=== PATIENT | male | born 1975 | race Caucasian/White ===

== ENCOUNTER 2017-03-30 07:46 | Emergency (ER) | payer OTHER ==
[2017-03-30 09:34] LABS: APPEARANCE,URINE CLEAR; BILIRUBIN,URINE NEGATIVE (NEGATIVE); GLUCOSE, URINE NEGATIVE (NEGATIVE); KETONES,URINE NEGATIVE (NEGATIVE); LEUKOCYTE ESTERASE,URINE NEGATIVE (NEGATIVE); NITRITE,URINE NEGATIVE (NEGATIVE); PROTEIN,URINE NEGATIVE (NEGATIVE); URINE SPECIFIC GRAVITY 1.013; UROBILINOGEN,URINE NEGATIVE mg/dL (<2.0)
[2017-03-30] MEDS ORDERED: MORPHINE SULFATE 10 MG/ML INJ IV ONE (10:06)
[2017-03-30] MEDS ORDERED: ONDANSETRON HCL INJ/PF 4 MG/2 ML SDV IV ONE (10:06)
[2017-03-30] MEDS ORDERED: NORMAL SALINE 1000 ML 1,000 ML IV ONE (10:06)
[2017-03-30] MEDS ORDERED: KETOROLAC TROMETHAMINE INJ/PF 30 MG/1 ML SDV IV ONE (10:06)
--- NOTE | 2017-03-30 10:06 | ER Document Report ---
ED GI/ - General Mode of Arrival: Ambulatory Information source: Patient TRAVEL OUTSIDE OF THE [place] IN LAST 30 DAYS: No <PATRICIA RIDER - Last Filed: 03/30/17 10:35> <BHAVIN LALA - Last Filed: 03/30/17 11:58> - General Chief Complaint: Abdominal Pain Stated Complaint: VOMITING Time Seen by Provider: 03/30/17 09:56 Notes: Patient is a 41-year-old male that presents to the emergency department today with complaints of right lower quadrant abdominal pain radiating to his right flank and into his right testicle. Patient states the pain he has began suddenly this morning at 0630. Patient has a history of kidney stones but he states his symptoms today are not the exact same as his previous kidney stone but they are is similar. Patient has had associated vomiting and diaphoresis. ( PATRICIA RIDER) - Related Data Allergies/Adverse Reactions: ants Allergy (Intermediate, Uncoded 03/30/17 09:21) bees Allergy (Intermediate, Uncoded 03/30/17 09:21) Past Medical History - Social History Smoking Status: Never Smoker Chew tobacco use (# tins/day): Yes Frequency of alcohol use: Rare Drug Abuse: None Family History: Reviewed & Not Pertinent Patient has suicidal ideation: No Patient has homicidal ideation: No - Past Medical History Cardiac Medical History: Reports: Hx Hypertension Renal/ Medical History: Denies: Hx Peritoneal Dialysis - Immunizations Hx Diphtheria, Pertussis, Tetanus Vaccination: Yes <PATRICIA RIDER - Last Filed: 03/30/17 10:35> Review of Systems - Review of Systems Constitutional: See HPI, Diaphoresis EENT: No symptoms reported Cardiovascular: No symptoms reported Respiratory: No symptoms reported Gastrointestinal: See HPI, Abdominal pain - RLQ, Vomiting Genitourinary: See HPI, Flank pain Male Genitourinary: Testicular pain - right Musculoskeletal: No symptoms reported Skin: No symptoms reported Hematologic/Lymphatic: No symptoms reported Neurological/Psychological: No symptoms reported -: Yes All other systems reviewed and negative <PATRICIA RIDER - Last Filed: 03/30/17 10:35> Physical Exam <PATRICIA RIDER - Last Filed: 03/30/17 10:35> <BHAVIN LALA - Last Filed: 03/30/17 11:58> - Vital signs Vitals: Temp Pulse Resp BP Pulse Ox 98.8 F 53 L 16 188/117 H 99 03/30/17 07:54 03/30/17 07:54 03/30/17 07:54 03/30/17 07:54 03/30/17 07:54 - Notes Notes: Physical Exam: General: Alert, appears uncomfortable secondary to pain. HEENT: Normocephalic. Atraumatic. PERRL. Extraocular movements intact. Oropharynx clear. Neck: Supple. Non-tender. Respiratory: No respiratory distress. Clear and equal breath sounds bilaterally. Cardiovascular: Regular rate and rhythm. Abdominal: RLQ tenderness with palpation. No distension. Normal Bowel Sounds. Back: Right CVA tenderness to percussion. No deformity or step off. Extremities: Moves all four extremities. Upper extremities: Normal inspection. Normal ROM. Lower extremities: Normal inspection. No edema. Normal ROM. Neurological: Normal cognition. AAOx4. Normal speech. Psychological: Normal affect. Normal Mood. Skin: Warm. Diaphoresis. Normal color. (PATRICIA RIDER) Course - Laboratory Result Diagrams: 03/30/17 09:00 03/30/17 09:00 <PATRICIA RIDER - Last Filed: 03/30/17 10:35> - Laboratory Result Diagrams: 03/30/17 09:00 03/30/17 09:00 <BHAVIN LALA - Last Filed: 03/30/17 11:58> - Vital Signs Vital signs: Temp Pulse Resp BP Pulse Ox 98.8 F 53 L 16 188/117 H 99 03/30/17 07:54 03/30/17 07:54 03/30/17 07:54 03/30/17 07:54 03/30/17 07:54 - Laboratory Laboratory results interpreted by me: 03/30/17 08:57 Urine Blood MODERATE H Discharge <PATRICIA RIDER - Last Filed: 03/30/17 10:35> <BHAVIN LALA - Last Filed: 03/30/17 11:58> - Discharge Clinical Impression: Right ureteral stone, Renal colic on right side Hydronephrosis Qualifiers: Hydronephrosis type: with renal calculous obstruction Qualified Code(s): N13.2 - Hydronephrosis with renal and ureteral calculous obstruction Condition: Stable Disposition: HOME, SELF-CARE Additional Instructions: Kidney Stone: You are passing a kidney stone. These stones are usually due to increased calcium or uric acid concentrations in your urine. Stones within the kidney itself are not painful. The pain occurs as the stone leaves the kidney to pass down the long tube, called the ureter, leading to the bladder. If the stone is small, it will usually pass by itself. Most patients can pass the stone at home. You will usually receive medications for pain, nausea or vomiting, and sometimes a medication to assist in passing the kidney stone. However, if the pain is very severe or if vomiting prevents you from taking oral pain medications, you may need to return for further treatment. Drink three or four quarts of fluids per day. You will be given pain medication (if needed) and urine strainers. Strain all your urine to see if the stone passes. If your doctor has asked you to bring the stone in for analysis, return with the stone once it has passed. Return if pain or vomiting become severe, if you develop a high fever, if you are unable to pass your urine, or if other unusual symptoms occur. Drink plenty of fluids. Take pain medications as needed. Take Flomax as prescribed starting tomorrow. Strain the urine. Follow-up with a local urologist next week if not improving. RETURN TO THE EMERGENCY ROOM IF ANY NEW OR WORSENING SYMPTOMS. Prescriptions: Oxycodone HCl/Acetaminophen [Percocet 5-325 mg Tablet] 1 - 2 tab PO ASDIR PRN # 20 tablet PRN Reason: Tamsulosin HCl [Flomax 0.4 mg Cap.sr] 0.4 mg PO DAILY #7 cap.sr.24h Referrals: [facility] [Provider Group] - Follow up as needed Scribe Attestation: 03/30/17 11:39 I personally performed the services described in the documentation, reviewed and edited the documentation which was dictated to the scribe in my presence, and it accurately records my words and actions. (BHAVIN LALA) Scribe Documentation - Scribe Written by Scribe:: Kylie Samuel, 03/30/2017 1045 acting as scribe for :: Anitra <PATRICIA RIDER - Last Filed: 03/30/17 10:35>
--- NOTE | 2017-03-30 11:07 | RADIOLOGY REPORT (SQ) ---
EXAM DESCRIPTION: CT LTD RENAL STONE PROTOCOL ON COMPLETED DATE/TIME: 03/30/2017 10:55 am REASON FOR STUDY: Sudden onset pain to R CVA,RLQ w/ N V COMPARISON: None. TECHNIQUE: CT scan of the abdomen and pelvis performed without intravenous or oral contrast. Images reviewed with lung, soft tissue, and bone windows. Reconstructed coronal and sagittal MPR images revi ewed. All images stored on PACS. All CT scanners at this facility use dose modulation, iterative reconstruction, and/or weight based d osing when appropriate to reduce radiation dose to as low as reasonably achievable (ALARA). [facility]: Dose Right [facility]: CareDose [facility]: Dose Right [facility]: Teradose 4D [facility]: Smart [employer] RADIATION DOSE: CT Rad equipment meets quality standard of care and radiation dose reduction techniq ues were employed. CTDIvol: 6.5 mGy. DLP: 362 mGy-cm.mGy. LIMITATIONS: None. FINDINGS: LOWER CHEST: No significant findings. No nodules or infiltrates. NON-CONTRASTED LIVER, SPLEEN, ADRENALS: Evaluation limited by lack of IV contrast. No identified sign ificant masses. PANCREAS: No masses. No peripancreatic inflammatory changes. GALLBLADDER: No identified stones by CT criteria. No inflammatory changes to suggest cholecystitis. RIGHT KIDNEY AND URETER: No suspicious masses. Assessment limited by lack of IV contrast. 2 mm calc ulus upper pole. Mild right hydronephrosis with 4 mm calculus within the mid ureter. LEFT KIDNEY AND URETER: No suspicious masses. Assessment limited by lack of IV contrast. Several pu nctate nonobstructing calculi. No hydronephrosis or hydroureter. AORTA AND RETROPERITONEUM: No aneurysm. No retroperitoneal masses or adenopathy. BOWEL AND PERITONEAL CAVITY: No obvious masses or inflammatory changes. No free fluid. APPENDIX: Normal. PELVIS, BLADDER, AND ABDOMINAL WALL:No abnormal masses. No free fluid. Bladder normal. BONES: No significant findings. OTHER: No other significant finding. IMPRESSION: BILATERAL NEPHROLITHIASIS WITH MILD RIGHT HYDRONEPHROSIS SECONDARY TO 4 MM CALCULUS WITH IN THE MID URETER. COMMENT: Quality ID # [id number]: Final reports with documentation of one or more dose reduction techniques (e.g., Automated exposure control, adjustment of the mA and/or kV according to patient size, use of iterative reconstruction technique) TECHNICAL DOCUMENTATION: JOB ID: [id number] [employer]- All Rights Reserved
[2017-03-30] MEDS ORDERED: TAMSULOSIN HCL 0.4 MG CAP.SR.24H PO ONE (11:37)
[2017-03-30 12:23] VITALS: BP 163/100
== END 2017-03-30 12:23 | disposition home or self-care (01) ==
LOC: ER 07:46
DX: N13.2 Hydronephrosis with renal and ureteral calculous obstruction (principal); N23 Unspecified renal colic; N50.811 Right testicular pain; R11.10 Vomiting, unspecified; R61 Generalized hyperhidrosis
CPT/HCPCS: 99284; 96361; 96374; 96375; 81001; 76380; J1885; J2270; J2405; J7030